=== PATIENT | female | born 1965 | race Caucasian/White ===

== ENCOUNTER 2019-09-04 00:58 | Emergency (ER) | payer SELFPAY ==
--- NOTE | 2019-09-04 02:34 | RADIOLOGY REPORT (SQ) ---
EXAM DESCRIPTION: XR LUMBAR SPINE ANTEROPOSTERIOR, LATERAL, AND OBLIQUES COMPLETED DATE/TME: 09/04/2019 00:00 CLINICAL HISTORY: 54 years, Female, bone pain COMPARISON: None. NUMBER OF VIEWS: Five TECHNIQUE: AP lateral and oblique images of the lumbar spine LIMITATIONS: None. FINDINGS: There is mild grade 1 anterolisthesis of L5 over S1 secondary to facet arthropathy. There is no acute fracture or subluxation. The vertebral heights are maintained. There is disc space narrowing at L5-S1. IMPRESSION: No acute fracture or subluxation copyright 2010 [employer]- All Rights Reserved
[2019-09-04] MEDS ORDERED: OXYCODONE-ACETAMINOPHEN 5-325 MG TABLET PO ONE (03:27)
[2019-09-04] MEDS ORDERED: DEXAMETHASONE SOD PHOS INJ 10 MG/1 ML VIAL IM ONE (03:27)
--- NOTE | 2019-09-04 03:33 | ER Document Report ---
ED General - General Chief Complaint: Back Injury Stated Complaint: FALL-BACK PAIN Time Seen by Provider: 09/04/19 02:55 TRAVEL OUTSIDE OF THE [place] IN LAST 30 DAYS: No - HPI Notes: Patient is a 54-year-old female who presents emergency department for evaluation of right-sided back pain which radiates into her hip and down her thigh. She is had 2 mechanical falls in the last 2 weeks. She has been taking Flexeril, Vicodin. She admits she was given a Medrol Dosepak but states that she lost it somewhere in her home. She denies any bowel or bladder incontinence, no saddle anesthesia, no focal numbness or weakness. She states that she has had some mild constipation, but attributes that to the narcotics. - Related Data Allergies/Adverse Reactions: diphenhydramine HCl [From Benadryl] Allergy (Verified 04/13/16 04:16) Sulfa (Sulfonamide Antibiotics) Allergy (Verified 04/13/16 04:16) Home Medications: flexeril, norco, steroid( lost bottle only had 2 days taken). adderall,xanax,prn Past Medical History - General Information source: Patient - Social History Smoking Status: Current Every Day Smoker Family History: Reviewed & Not Pertinent Patient has suicidal ideation: No Patient has homicidal ideation: No - Past Medical History Cardiac Medical History: Denies: Hx Coronary Artery Disease Psychiatric Medical History: Reports: Hx Anxiety, Hx Attention Deficit Hyperactivity Disorder Past Surgical History: Reports: Hx Cholecystectomy, Hx Hysterectomy - Immunizations Hx Diphtheria, Pertussis, Tetanus Vaccination: Yes Review of Systems - Review of Systems Musculoskeletal: See HPI -: Yes All other systems reviewed and negative Physical Exam - Vital signs Vitals: Temp Pulse Resp BP Pulse Ox 97.7 F 86 18 190/77 H 99 09/04/19 01:20 09/04/19 01:20 09/04/19 01:20 09/04/19 01:20 09/04/19 01:20 - Notes Notes: This is a 54-year-old female who appears her stated age in no acute distress. Vital signs reviewed, please refer to chart. Head is normocephalic, atraumatic. Pupils equal round, reactive to light. Neck is supple without meningismus. Heart is regular rate and rhythm. Lungs are clear to auscultation bilaterally. Abdomen is soft, nontender, normoactive bowel sounds throughout. Examination of the spine yields no midline tenderness or step-off. She has paraspinal musculature tenderness noted approximately L4-L5, just right of the spinous processes. She is tender over the right piriformis. Negative straight leg raise bilaterally. Patellar and Achilles reflexes are mildly diminished but symmetrical. Sensation is intact. Strength testing deferred secondary to level of pain. Extremities without cyanosis, clubbing. Posterior calves are nontender. Peripheral pulses are equal. Skin is warm and dry. Patient is awake, alert, neurological exam is nonfocal. Course - Re-evaluation Re-evalutation: 09/04/19 03:31 Patient presents to the emergency department for evaluation. She had x-rays as ordered. Her x-ray showed chronic appearing changes, no acute fractures. The patient is already received pain medication as an outpatient. I encouraged her to find her Medrol Dosepak and continue to take it. I will get and medicate her with Decadron IM here. She is given 1 dose of Percocet here as well. Otherwise she is to continue with Flexeril, moist heat to the area. She states she wants to see a chiropractor, asks for copy of her films. These were given to her and the patient was discharged. She is to return to the ED with worsening or new concerning symptoms of any sort. - Vital Signs Vital signs: Temp Pulse Resp BP Pulse Ox 97.7 F 86 18 190/77 H 99 09/04/19 01:20 09/04/19 01:20 09/04/19 01:20 09/04/19 01:20 09/04/19 01:20 Discharge - Discharge Clinical Impression: Fall Qualifiers: Encounter type: initial encounter Qualified Code(s): W19.XXXA - Unspecified fall, initial encounter Low back pain Qualifiers: Chronicity: acute Back pain laterality: right Sciatica presence: with sciatica Sciatica Qualifiers: Laterality: right Qualified Code(s): M54.31 - Sciatica, right side Condition: Stable Disposition: HOME, SELF-CARE Instructions: Low Back Pain ([facility]), Muscle Strain ([facility]), Warm Packs ([facility]) Additional Instructions: Resume Medrol Dosepak as prescribed. Take Flexeril as well. Follow-up with primary care this week. Return to the emergency department with worsening or new concerning symptoms of any sort.
[2019-09-04 03:46] VITALS: BP 189/88
== END 2019-09-04 03:46 | disposition home or self-care (01) ==
LOC: ER 00:58
DX: M54.41 Lumbago with sciatica, right side (principal); W19.XXXA Unspecified fall, initial encounter; K59.03 Drug induced constipation; F17.200 Nicotine dependence, unspecified, uncomplicated; Z88.2 Allergy status to sulfonamides; Z90.49 Acquired absence of other specified parts of digestive tract; Z90.710 Acquired absence of both cervix and uterus
CPT/HCPCS: 99283; 96372; 72110; J1100